=== PATIENT | male | born 1950 | race Caucasian/White ===

== ENCOUNTER 2016-09-03 09:07 | Observation (INO) | payer MEDICARE ==
[2016-09-03] VITALS (8 sets, daily range): BP systolic 108–172; BP diastolic 59–84; PULSE 60–73; RESP 15–20; O2SAT 93–99
[~2016-09-03] VITALS: Ht 193 cm; Wt 126.4 kg
[~2016-09-03 09:07] MED LIST: ASPI-973 PO; ATRV10T PO; METF500T4 PO; SERT100T PO
--- NOTE | 2016-09-03 09:25 | ED.REPORT ---
HPI-Chest Pain 40 and Over Date of Service Sep 03, 2016 ED Provider: Saman Morales MD Pt is a 66 y/o male w/ a hx of HTN, NIDDM, hyperlipidemia, anxiety, presenting to the ED c/o intermittent dull substernal chest pressure onset 2 days ago. These episodes seem to last 20-30 minutes at a time and are associated with diaphoresis, fatigue, anxiety, SOB, and numbness and tingling in the RUE. Pt denies nausea, fever, chills, abdominal pain, vomiting, diarrhea, urinary frequency, dysuria. This morning, he was sitting down reading and drinking coffee and his episode of CP was much more intense and felt different than prior episodes of chest pain so he decided to be evaluated. He states his anxiety has been progressively increasing for the past 2 weeks due to every-day life stressors associated with his PTSD. Family history is unknown. He had an episode of CP 20 years ago and reportedly had a normal cardiac workup at that time. He has no history of CAD. He is able to exercise without experiencing CP. His flight surgeon told him he may have been experiencing PACs many years ago by clinical history, there is no known history of LBBB. [facility] to see a [facility] again due to intermittent suicidal ideations. He denies history of suicide attempt. He reports close associated suicide, possession of firearm, alcohol use (1-2 per day). His plan to avoid suicide is to drive to his fishing spot or a coffee shop. PCP: Dr. Bonilla [facility] Suarez Nursing Notes Stated Complaint: CHEST PAIN Chief Complaint: Dysrhythmia/Cardiac Nursing Notes Reviewed: Yes Allergies: Coded Allergies: No Known Allergies (Verified Allergy, Unknown, 09/03/16) Scheduled Aspirin (Aspirin) 81 Mg Tablet 81 MG PO DAILY Atorvastatin (Lipitor) 10 Mg Tab 10 MG PO DAILY Metformin (Metformin) 500 Mg Tablet 500 MG PO DAILY Sertraline HCl (Zoloft) 100 Mg Tablet 100 MG PO DAILY General Time Seen by MD: 09:21 Chief Complaint Chest pressure Hx Obtained From: Patient Arrived By: Walk-in Sudden in Onset?: Yes Onset Occurred: 2 days ago Symptom Duration: Intermittent Location: : Substernal Quality: Pressure Radiation: : Does not radiate Migration/Movement: Reports: None Severity: Current: No pain currently Severity: Maximum: Moderate Similar Sx Previous: No Past Medical History Past Medical History Notes: PCP: Dr. [facility] Past Medical History NIDDM Hypertension Hyperlipidemia Anxiety PTSD Benign colonic polyps Past Surgical History Endoscopy Family History Unknown, never knew his parents Smoking History Former Smoker Social History Alcohol Use: 1-3 per day Ambulatory Status Independent Review of Systems Constitutional: Reports: Fatigue, Denies: Chills, Fever Respiratory: Reports: Shortness of breath, Denies: Non-productive cough Cardiovascular: Reports: Chest pain, Denies: Dyspnea on exertion, Edema GI: Reports: Nausea, Denies: Abdominal pain, Diarrhea, Vomiting Skin: Reports Diaphoresis, Denies Rash Neurologic: Reports: Numbness, Denies: Focal weakness Psychiatric: Reports: Anxiety, Stress, Denies: Agitation Complete sys rev & neg: except as marked. Male: Denies Dysuria, Denies Urinary frequency Physical Exam Initial Vital Signs Vital Signs (First) Date Time Temp Pulse Resp B/P Pulse Ox O2 Delivery O2 Flow Rate FiO2 09/03/16 09:20 36.9 73 15 172/84 96 Room Air Initial VS: Reviewed, Vital signs abnormal Head / Eyes: Atraumatic, Normocephalic, PERRL ENT: Mucous membranes moist, Conjunctiva normal, No scleral icterus Neck: Supple, Full range of motion Extremities: Vascular intact, Neuro intact, No swelling, No tenderness Skin: Warm, Dry, No cyanosis Neurologic: Alert, Oriented, Nonfocal General/Constitutional: Awake, Alert, No acute distress, Cooperative, Not toxic appearing Respiratory / Chest: Atraumatic, Breath sounds NL, Breath sounds = bilat, No respiratory distress, No rales, No rhonchi, No wheezing, No retractions, No stridor, No chest tenderness, No chest wall deformity, No crepitus Cardiovascular: Heart rate NL, Regular rhythm, Heart sounds NL, No gallop, No murmurs, No rubs, Cap refill not delayed, Peripheral circulation NL Abdomen: Atraumatic, Soft, Non-tender, No guarding, No rebound, No distention, No palpable mass Psychiatric: Affect NL, Mood NL, Not suicidal, Not homicidal, No hallucinations , Cognitive function NL, Judgment/insight NL, Thought content NL Interpretation & Diagnostics Lab Results Interpretation Result Diagram: 09/03/1630 4/6/17 0930 Test 09/03/16 09:30 White Blood Count 7.3th/mm3 (3.8-10.1) Red Blood Count 5.22mil/mm3 (4.40-5.80) Hemoglobin 15.3g/dL (13.8-17.2) Hematocrit 46.0% (41.0-50.0) Mean Corpuscular Volume 88.1fL (81-100) Mean Corpuscular Hemoglobin 29.3pg (27.0-35.0) Mean Corpuscular Hemoglobin Concent 33.3% (32.0-37.0) Red Cell Distribution Width 13.5% (12.3-15.4) Platelet Count 219bil/L (150-400) Neutrophils (%) (Auto) 71.8% (40-74) Lymphocytes (%) (Auto) 17.2% (14-46) Monocytes (%) (Auto) 10.0% (4-12) Eosinophils (%) (Auto) 0.3% (0-5) Basophils (%) (Auto) 0.4% (0-3) Sodium Level 138mEq/L (134-144) Potassium Level 4.0mEq/L (3.5-5.2) Chloride Level 102mEq/L (97-108) Carbon Dioxide Level 20mmol/L (18-29) Blood Urea Nitrogen 18mg/dL (8-27) Creatinine 1.15mg/dL (0.76-1.27) Estimat Glomerular Filtration Rate 67mL/min (>59) Glucose Level 135mg/dL (60-99) Calcium Level 9.5mg/dL (8.5-10.1) Magnesium Level 2.0mg/dL (1.6-2.6) Total Bilirubin 0.4mg/dL (0.0-1.2) Aspartate Amino Transf (AST/SGOT) 19U/L (0-50) Alanine Aminotransferase (ALT/SGPT) 15U/L (0-44) Alkaline Phosphatase 67U/L (25-160) Troponin T < 0.010ug/L (0.0-0.011) Pro-B-Type Natriuretic Peptide 75.99pg/mL (0-376) Total Protein 7.3g/dL (6.4-8.4) Albumin 4.0g/dL (3.4-5.0) ECG Interpretation ECG Interpretation: Sinus rhythm rate 68 LBBB No prior available for comparison Time: 09:25 Interpreted by: ED physician Normal ECG Interpretation: No acute ischemic changes X-Ray Chest Interpretation Chest Xray Interpretation: IMPRESSION: No trauma found, source of chest pain is not seen. Dictated by: Chaparro Llamas M.D. on 09/03/2016 at 10:31 Approved by: Chaparro Llamas M.D. on 09/03/2016 at 10:31 View: Portable, 1 view Interpretation / Wet Read by: Interpret - Radiologist Re-Eval/Medical Decision Med Decision/Clinical Course 66 year old male with multiple cardiac risk factors and increasing chest pain compatible with angina. He also has anxiety. ECG is LBBB, we do not have a baseline ECG. Given risk factors and abnormal ECG admission for expedited stress test indicated. Given ASA and lorazepam in ED. Pt has SI but no active intent, significant anxiety and he reports PTSD. Referral for mental health follow up is thought appropriate, discused with admitting service. Time of Eval: 10:45 Re-Evaluation/Progress Note: Pt rechecked. Informed pt of need for admission for cardiac workup. Pt understands and agrees with plan for admission. All questions addressed. Consultation : Referral / Consult Name: Aletha Wagoner DO Consulted With: Hospitalist Call Returned at: 10:54 Business Integration Manager: Will see patient, Agrees with eval, Agrees with plan, Accepts admit Counseled Regarding: Diagnosis, Lab results, Need for admission Discharge & Departure Primary Impression: Chest pain Chest pain type: unspecified Qualified Code: R07.9 - Chest pain, unspecified Additional Impression: Anxiety Disposition: ADMITTED TO HOSPITAL Discharge Condition All VS Reviewed: Yes Condition: Stable Referrals: Felipe Bonilla MD (PCP) Radha Attestation Portions of this note were transcribed by Lee Lujan. I, Dr. Morales personally performed the history, physical exam and medical decision-making; I reviewed and confirmed the accuracy of the information in the transcribed note. Signed by Radha Garcia, 09/03/16 - 1000 copies to: Felipe Bonilla MD, Donald L MD Sep 03, 2016 09:25 LEE LUJAN Sep 03, 2016 09:28
[2016-09-03 09:46] LABS: BASOPHILS % (AUTO) 0.4 % (0-3); EOSINOPHILS % (AUTO) 0.3 % (0-5); Mean Corpuscular Hemoglobin 29.3 pg (27.0-35.0); Mean Corpuscular Volume 88.1 fL (81-100); NEUTROPHILS % (AUTO) 71.8 % (40-74); Platelet Count 219 bil/L (150-400)
[2016-09-03] MEDS ORDERED: LORazepam 1 mg Tablet PO ONE (10:05)
[2016-09-03] MEDS ORDERED: Nitroglycerin 2% 1 Gm Ointment TOPICAL SCH (10:05)
[2016-09-03 10:27] LABS: TROPONIN T < 0.010 ug/L (0.0-0.011)
--- NOTE | 2016-09-03 10:32 | DRSVH ---
PROCEDURE: X-RAY CHEST ONE VIEW, PORTABLE ([id number]) INDICATIONS: CHEST PAIN TECHNIQUE: One view of the chest was acquired. COMPARISON: None. FINDINGS: Surgical changes and devices: None. Lungs and pleura: No pleural effusions or pneumothorax. Lungs are clear. Mediastinum: Mediastinal contours appear normal. Heart size is normal. Bones and chest wall: No suspicious bony lesions. Overlying soft tissues appear unremarkable. IMPRESSION: No trauma found, source of chest pain is not seen. Dictated by: Chaparro Llamas M.D. on 09/03/2016 at 10:31 Approved by: Chaparro Llamas M.D. on 09/03/2016 at 10:31
[2016-09-03] MEDS ORDERED: Ondansetron 2 mg/mL 2 mL Inj IVPUSH PRN ×2 (10:55→13:25)
[2016-09-03] MEDS ORDERED: Alum-Mag Hydrox-Simeth 30 mL Suspension PO PRN ×2 (10:55→13:25)
[2016-09-03] MEDS ORDERED: Lactated Ringer's 1,000 ML IV SCH (13:21)
[2016-09-03] MEDS ORDERED: Polyethylene Glycol (PEG) 17 Gm Powder PO PRN (13:25)
[2016-09-03] MEDS ORDERED: Glucose 40% Oral Gel 15 Gm Tube PO PRN (13:35)
[2016-09-03] MEDS: 0.9% Sodium Chloride 1,000 ML IV SCH (14:35)
[2016-09-03 15:43] LABS: APPEARANCE,URINE CLEAR (CLEAR,HAZY); COLOR,URINE YELLOW (YELLOW); OCCULT BLOOD,URINE TRACE (NEGATIVE); PH,URINE 7.5 (5.0-8.0); UROBILINOGEN,URINE NORMAL (NORMAL)
[2016-09-03 16:37] LABS: TROPONIN T < 0.010 ug/L (0.0-0.011)
[2016-09-03 16:40] LABS: Creatine Kinase 178 U/L (21-232)
[2016-09-03] MEDS: Insulin LISPRO 300 Unit/3 mL Inj SUBQ SCH ×2 (17:30→21:01)
[2016-09-03 22:09] LABS: Creatine Kinase 155 U/L (21-232)
[2016-09-03 22:11] LABS: TROPONIN T < 0.010 ug/L (0.0-0.011)
--- NOTE | 2016-09-03 23:08 | PCM.HPMED ---
Subjective Date of Service Sep 03, 2016 Primary Provider: Admitting Physician: Aletha Wagoner DO Primary Care Physician: Felipe Bonilla MD Attending Physician: Aletha Wagoner DO Admit Status: From the Emergency Department Chief Complaint: Chest pain, anxiety History of Present Illness: Mr. Jeremy Najera is a [age]-year-old male with past medical history of PTSD, anxiety, depression, diabetes type II, hypertension, hyperlipidemia. He states that he suffered for many many anxiety attacks. He states that he has been on Zoloft for many many years. Used to work but he does not feel it any longer working. He was given Ativan in the remote past and it worked but he no longer uses it. He received some Ativan in the ER which she feels has helped quite a bit. He belongs to the [employer] [facility] and this Dr. Bonilla also for PCP. He states that he was just sitting and reading something at 8:30 AM when he suddenly started feeling diaphoretic and dyspneic. He states that during these same moments he also felt suicidal though he did not have any plan. He states that this is not the first time he felt that way he felt that way for many years occasionally. He no longer feels the pain in the room. He denies use of recreational drugs. According to ER notes patient also is in the position of firearms. In the ER EKG showed left bundle branch block without any baseline to compare. Troponin is negative aspirin nitroglycerin given chest x-ray was negative. Ativan was given for anxiety. Patient is admitted to the [facility] team due to concern for us time finding of left bundle branch block to rule out ischemia versus infarction for a myocardial perfusion scan. Allergies Coded Allergies: No Known Allergies (Verified Allergy, Unknown, 09/03/16) H Past medical history is pertinent for DM 2, HTN, hyperlipidemia, anxiety, PTSD, benign polyps Surgical History Endoscopy Family History Adopted unknown family history Social History Hx Alcohol Use: Yes Alcoholic Drinks Per Day: 1-2 Hx Substance Use: No Smoking Status: Never Smoker Living Arrangement: with Family Exam Vital Signs Vital Sign - Last Date Time Temp Pulse Resp B/P Pulse Ox O2 Delivery O2 Flow Rate FiO2 09/03/16 12:06 36.9 72 157/68 95 Room Air 09/03/16 11:50 20 Exam Gen.: No acute distress laying in bed obese HEENT: Normocephalic atraumatic safety cannot hear on the right ear Heart: Regular rate and rhythm distant heart sounds Lungs: Negative for wheezing or crackles distant lung sounds Abdomen obese, nontender, normal bowel sounds Paz is negative for edema Neck negative for jugular venous distention, negative for carotid bruits Psych negative for anxiety Neuro no focal deficits Lab and Diagnostics Result Diagram: 09/03/1692909/03/16929 12-lead ECG Left bundle branch block Assessment & Plan Acute assessment #1 Assessment #1 chest pain: Resolved upon arriving to the floor -- Telemonitoring --Morphine 1 mg every 4 when necessary as needed -- Aspirin daily -- Nitroglycerin when necessary -- Stress test tomorrow a.m. -- Hold beta blockers and casein for stress -- Cardiac echo -- Oxygen as needed -- Continue home atorvastatin Assessment #2 anxiety attack -- Clonazepam 0.5 mg by mouth twice a day when necessary Assessment #3 depression and anxiety -- Consider switching him to Effexor Assessment #4 suicidal ideation prior to arrival -- Consult psych Assessment #5 hyperlipidemia -- Continue home statin -- A.m. lipid panel #6 diabetes -- Hold metformin -- A.m. A1c -- Low scale SSI DVT prophylaxis with enoxaparin 40 mg subcutaneous IV fluids hep-locked Diet cardiac Aletha Wagoner DO Sep 03, 2016 13:37
[2016-09-04] VITALS (10 sets, daily range): BP systolic 114–173; BP diastolic 64–89; PULSE 49–75; RESP 16–18; O2SAT 94–97
--- NOTE | 2016-09-04 01:40 | NUR ---
Bradycardia/NPO Pt's HR while sleeping went from 50, 40, to 39 bpm per train electronic technician. Pt awaken and assessed-asymptomatic. Pt hr increased to 49 while awake and other vitals stable. Denies dizziness, headache and discomfort. Dr. Tinajero notified and will continue to monitor. Pt told about decrease in HR and pt stated, "What's wrong with that?" Pt got up and went to the bathroom without issues noted. NPO after midnight. care ongoing.
--- NOTE | 2016-09-04 01:56 | NUR ---
Bradycardia Per monitor technician-Pt's hr 39bpm while asleep. Pt awaken and hr 55. Other vitals stable. Denies discomfort, chest pain, and shortness of breath. Asymptomatic. Cooked paged Dr. Tinajero awaiting response. care on going.
[2016-09-04] MEDS: 0.9% Sodium Chloride 1,000 ML IV SCH ×2 (03:03→14:20)
[2016-09-04 06:07] LABS: BASOPHILS % (AUTO) 0.3 % (0-3); MONOCYTES % (AUTO) 10.9 % (4-12); Mean Corpuscular Hemoglobin 29.7 pg (27.0-35.0); Mean Corpuscular Volume 90.1 fL (81-100); NEUTROPHILS % (AUTO) 55.8 % (40-74); Platelet Count 195 bil/L (150-400)
[2016-09-04] MEDS: Insulin LISPRO 300 Unit/3 mL Inj SUBQ SCH ×4 (07:12→22:00)
--- NOTE | 2016-09-04 13:00 | NUR ---
Case Management: JANIA given and explained to pt. Jovanna CALLE RN
--- NOTE | 2016-09-04 14:01 | DRSVH ---
PROCEDURE: 1 DAY PHARMACOLOGICAL STRESS TEST Rest and pharmacological stress myocardial perfusion SPECT with gated imaging and ejection fraction RADIOPHARMACEUTICAL: 10.5 mCi Tc-99m tetrafosmin IV at rest and 32.7 mCi Tc-99m tetrafosmin IV at pea k effect of pharmacological stress. A [id number] was performed. INDICATIONS: 66 year-old male with chest pain. Patient has hypertension, diabetes and hyperlipidemia . Evaluate myocardial ischemia. TECHNIQUE: Radiopharmaceutical was injected at peak stress test, and also at rest. SPECT images wer e obtained. SPECT myocardial perfusion images were displayed in short axis, horizontal long axis, an d vertical long axis views. Gated images were reviewed using [employer] software. COMPARISON: None. CARDIAC STRESS: A pharmacologic stress test was performed under the supervision of an attending staff, using an infus ion of Lexiscan. Hemodynamic data: There is normal blood pressure and heart rate response to pharmacologic stress. Symptoms: The patient reported chest pressure at baseline, which may have been slightly increased du ring Lexiscan fusion. Aminophylline: 100 mg IV EKG: LBBB at baseline. Non-diagnostic for ischemia; no ectopy. FINDINGS: Raw data: There is good myocardial uptake of radiotracer. No significant motion artifacts.. Left ventricle function: Gated images demonstrate normal left ventricular wall thickening. No segme ntal wall motion abnormalities. No transient ischemic dilation. Left ventricle resting end diastoli c volume is normal. Left ventricle stress ejection fraction is greater than 70%; normal range is abo ve 45%. Myocardial perfusion: There is a moderate-sized, moderately severe, reversible perfusion defect in t he distal inferior wall and inferior apex, which is significantly improved on prone imaging, suggesti ng at least a component of diaphragmatic attenuation artifact. A small, mild defect persists, which c ould represent a small area of very mild ischemia.. IMPRESSION: 1. Probably abnormal myocardial perfusion images with a small, mild, reversible perfusion defect sugg esting myocardial ischemia. There is a component of attenuation artifact in anterior wall. 2. Normal left ventricular volume and systolic function. 3. Mild chest pressure. LBBB. No-diagnostic EKG for ischemia. PQRS ATTESTATIONS: Measure 322 - Is this imaging test primarily performed on a low-risk surgery patient for preoperative evaluation within 30 days preceding their low-risk non-cardiac surgery? Low-risk surgery is defined as cardiac or myocardial infarction less than 1%, including (but not limited to) endoscopic pr ocedures, superficial procedures, cataract surgery, and excisional breast surgery: Answer: No Measure 323 - Is this imaging test performed primarily for the monitoring of an asymptomatic patient who had percutaneous coronary intervention on the visit date or within 2 years of the visit date? An swer: No Measure 324 - Is this imaging test performed primarily for the initial detection and risk assessment on an asymptomatic, low coronary heart disease patient? Low CHD risk definition = clinicians should consider the maximum number of available patient factors used to estimate risk based on Mccaskill (A TP III criteria), typically age, gender, diabetes, smoking status, and use of blood pressure medicati on, and integrate age appropriate estimates for missing elements, such as LDL or standard blood press ure. Answer: No Dictated by: Antonio Guerrero M.D. on 09/04/2016 at 13:43 Approved by: Antonio Guerrero M.D. on 09/04/2016 at 14:00
--- NOTE | 2016-09-04 14:25 | NUR ---
Social Work: Initial Assessment / Readiness for d/c Data: Pt is a 66 y/o male admitted for chest pain. Pt's PCP is Dr Bonilla, pt's insurance is [employer]. EMR reviewed. Readmit score not listed. PHOTOENGRAVER APPRENTICE met with pt at bedside, role explained. Pt states that he lives in [place] with his in a single story home where he uses no DME. Pt states that he drives, has no hx of HH or SNF, pt has LTC and [facility] benefits. UR specialist notified of VA status. Pt states he has an AD/DPOA, declined to give this to hospital at this time. See Mental Health Assessment. No further d/c planning needs identified at this time. PHOTOENGRAVER APPRENTICE will continue to follow if needs arise. Assessment: Pt who is independent at baseline. Plan: Pt will d/c home via POV with spouse when medically stable. No further d/c planning needs identified at this time. PHOTOENGRAVER APPRENTICE will continue to follow if needs arise. MANDA Romeo Addendum: 09/04/16 at 1502 by APSTOR LOMBARDO Amended: Links added.
--- NOTE | 2016-09-04 16:26 | NUR ---
Social Work: Mental Health Assessment Jeremy Najera 09/04/16 2:30pm Current Situation: Pt was admitted to the hospital on 09/03/16 for chest pain. Pt reported hx of PTSD and anxiety. Pt also reported that he often has passing thoughts of suicide. OIL DEVELOPER asked to see pt by to assess. Pt and his spouse live in [place]. His chest pain is a change in his medical baseline. Pt reports no hx of chemical dependency or abuse. Current Mental Status: Pt is a 66 y/o white male who was laying in bed when OIL DEVELOPER came into the room. Pt moved to the chair to discuss further with OIL DEVELOPER. Pt requested that his stay in the room for the assessment. Pt appears in a hospital gown over his regular clothing of a t-shirt and jeans. Pt described his mood as "Feeling pretty good. Just got some anti-anxiety medication. I am looking forward to going home." Pt describes his energy as being very good for the past couple of weeks but prior to that was very low. Pt denies an visual, auditory, olfactory, tactile hallucinations. Pt denies any homicidal thoughts, ideas, or plans. Pt endorses that he frequently has "passing suicidal thoughts" but that he does not have a plan or intent to go through with this. He states that he likes to go fishing or go to his "man cave". He states "I have lots of ways out of feeling that way, I do not plan to kill myself." History: Pt reports that he has a "great [facility] [place]" and states that he has an appointment with her next week. Pt's spouse confirmed this. Pt has no hx of psychiatric treatment. Pt states he takes medications managed by his PCP for his mental health. Natural Supports: Pt reports that his is his biggest support. Pt also states that he goes to two different [facility] support groups. He also has his daughter who he states is a "medical professional". He also states that his [facility] counselor is a great support to him and has helped him a lot. Legal History: Pt reports that he has some land ownership disputes currently regarding his mother's property. No time in shelter. Pt does own guns for hunting purposes. Pt reports that he is not a victim of abuse currently or historically. Diagnosis: Per pt: PTSD, Anxiety. Disposition: After clinical evaluation, OIL DEVELOPER has determined that pt is not currently a danger to himself or others. MD and OIL DEVELOPER discussed, MD states they do not believe pt to be a danger to themselves or others. Pt states he will go to his appointment next week with his [facility] counselor and continue to take his medications as prescribed. Pt and spouse understand that they have 9-1-1, coming to the ER, and the [facility] crisis line if pt becomes suicidal. Pt accepted Mental Health Provider list from OIL DEVELOPER for future use. No further OIL DEVELOPER needs at this time. OIL DEVELOPER will continue to follow if needs arise. MANDA Romeo
[2016-09-04] MEDS: LORazepam 0.5 mg Tablet PO PRN (18:20)
--- NOTE | 2016-09-04 21:41 | PCM.PNMED ---
Subjective Date of Service Sep 04, 2016 Subjective Patient is seen and examined. He appears more irate today as he states he really needs Ativan to calm down, the only thing that will work for him. Clonazepam is not working. He did not receive his stress test results to later in the day is willing to stay overnight Exam Vital Signs Vital Sign - Last Date Time Temp Pulse Resp B/P Pulse Ox O2 Delivery O2 Flow Rate FiO2 09/04/16 20:31 36.9 63 18 145/86 95 Room Air Intake and Output 09/03/16 09/03/16 09/04/16 Cumulative From/Thru 14:59 22:59 06:59 09/03/16 09:20 - 09/04/16 06:01 Intake Total 705 ml 959 ml 1664 ml Output Total 475 ml 475 ml Balance 230 ml 959 ml 1189 ml Intake Oral 460 ml 460 ml IV Total 245 ml 959 ml 1204 ml Output Urine Total 475 ml 475 ml Exam Gen.: No acute distress heart appearing HEENT: Normocephalic, atraumatic Heart: Regular rate and rhythm no S3-S4 sounds Lungs: Clear to auscultation no crackles or wheezes Psych: Appears irate Neuro: No focal deficits IVs and Medications IV Fluids None Medications Reviewed: Medications were reviewed in detail Lab and Diagnostics Result Diagram: 09/04/1652909/04/16 05 12-lead ECG Left bundle branch block Additional Diagnostics [facility] Diagnostic [place] [address] Patient Name: ARASH RAMOS MR#: [id number] Location: [facility] [place] Ordering Phys: Aletha Wagoner DO Date of Service: 09/04/16 0600 PROCEDURE: 1 DAY PHARMACOLOGICAL STRESS TEST Rest and pharmacological stress myocardial perfusion SPECT with gated imaging and ejection fraction RADIOPHARMACEUTICAL: 10.5 mCi Tc-99m tetrafosmin IV at rest and 32.7 mCi Tc-99m tetrafosmin IV at peak effect of pharmacological stress. A tqy-vos-gxrztsgf was performed. INDICATIONS: 66 year-old male with chest pain. Patient has hypertension, diabetes and hyperlipidemia. Evaluate myocardial ischemia. TECHNIQUE: Radiopharmaceutical was injected at peak stress test, and also at rest. SPECT images were obtained. SPECT myocardial perfusion images were displayed in short axis, horizontal long axis, and vertical long axis views. Gated images were reviewed using [employer] software. COMPARISON: None. CARDIAC STRESS: A pharmacologic stress test was performed under the supervision of an attending staff, using an infusion of Lexiscan. Hemodynamic data: There is normal blood pressure and heart rate response to pharmacologic stress. Symptoms: The patient reported chest pressure at baseline, which may have been slightly increased during Lexiscan fusion. Aminophylline: 100 mg IV EKG: LBBB at baseline. Non-diagnostic for ischemia; no ectopy. FINDINGS: Raw data: There is good myocardial uptake of radiotracer. No significant motion artifacts.. Left ventricle function: Gated images demonstrate normal left ventricular wall thickening. No segmental wall motion abnormalities. No transient ischemic dilation. Left ventricle resting end diastolic volume is normal. Left ventricle stress ejection fraction is greater than 70%; normal range is above 45 %. Myocardial perfusion: There is a moderate-sized, moderately severe, reversible perfusion defect in the distal inferior wall and inferior apex, which is significantly improved on prone imaging, suggesting at least a component of diaphragmatic attenuation artifact. A small, mild defect persists, which could represent a small area of very mild ischemia.. IMPRESSION: 1. Probably abnormal myocardial perfusion images with a small, mild, reversible perfusion defect suggesting myocardial ischemia. There is a component of attenuation artifact in anterior wall. 2. Normal left ventricular volume and systolic function. 3. Mild chest pressure. LBBB. No-diagnostic EKG for ischemia. PQRS ATTESTATIONS: Measure 322 - Is this imaging test primarily performed on a low-risk surgery patient for preoperative evaluation within 30 days preceding their low-risk non- cardiac surgery? Low-risk surgery is defined as cardiac or myocardial infarction less than 1%, including (but not limited to) endoscopic procedures, superficial procedures, cataract surgery, and excisional breast surgery: Answer : No Measure 323 - Is this imaging test performed primarily for the monitoring of an asymptomatic patient who had percutaneous coronary intervention on the visit date or within 2 years of the visit date? Answer: No Measure 324 - Is this imaging test performed primarily for the initial detection and risk assessment on an asymptomatic, low coronary heart disease patient? Low CHD risk definition = clinicians should consider the maximum number of available patient factors used to estimate risk based on [place] ( ATP III criteria), typically age, gender, diabetes, smoking status, and use of blood pressure medication, and integrate age appropriate estimates for missing elements, such as LDL or standard blood pressure. Answer: No Dictated by: Antonio Guerrero M.D. on 09/04/2016 at 13:43 Approved by: Antonio Guerrero M.D. on 09/04/2016 at 14:00 Assessment & Plan Acute assessment #1 Assessment #1 chest pain: Resolved upon arriving to the floor -- Telemonitoring --Morphine 1 mg every 4 when necessary as needed -- Aspirin daily -- Nitroglycerin when necessary -- Stress test tomorrow a.m. -- Hold beta blockers and caffienefor stress -- Cardiac echo -- Oxygen as needed -- Continue home atorvastatin -- Stress test result: Probably abnormal myocardial perfusion images with a small, mild, reversible perfusion defect suggesting myocardial ischemia. There is a component of attenuation artifact in anterior wall. This is discussed with Dr. Mccarthy since he can be followed up as an outpatient by cardiology. Assessment #2 anxiety attack -- Clonazepam 0.5 mg by mouth twice a day when necessary: He switched to Ativan 0.5 twice a day when necessary. We also discussed the need to adjust his home medication since that he does not develop a dependence on Ativan but rather only use it for acute panic attacks Assessment #3 depression and anxiety -- Consider switching him to Effexor: Upon discussion with patient, it is felt that he really believes that medication does work and we will leave it up to his PCP to discuss switching him on a taper protocol to another medication -- We will augment with trazodone Assessment #4 suicidal ideation prior to arrival -- Consult psych Assessment #5 hyperlipidemia -- Continue home statin -- A.m. lipid panel #6 diabetes -- Restart metformin -- A.m. A1c: 6.3 well controlled -- Low scale SSI DVT prophylaxis with enoxaparin 40 mg subcutaneous IV fluids hep-locked Diet cardiac VTE Prophylaxis: Sub-Q Enoxaparin Resuscitation Status: CPR: Attempt Resuscitation Aletha Wagoner DO Sep 04, 2016 21:41
[2016-09-05 00:42] VITALS: BP 134/83; PULSE 60; RESP 16; O2SAT 97
[2016-09-05 04:38] VITALS: BP 155/94; PULSE 60; RESP 16; O2SAT 99
[2016-09-05 05:28] VITALS: PULSE 50
[2016-09-05] MEDS: LORazepam 0.5 mg Tablet PO PRN (07:51)
[2016-09-05] MEDS: Insulin LISPRO 300 Unit/3 mL Inj SUBQ SCH (07:51)
--- NOTE | 2016-09-05 08:12 | PCM.DIMED ---
Discharge Instructions Date of Service Sep 05, 2016 Dates of Hospitalization Sep 03, 2016 at 11:41 Discharge Diagnosis Discharge Diagnosis Chest Pain due to CAD, DM2, HTN, Hyperlipidemia, panic attack Test Results [facility] Diagnostic Imaging [place] [address] Patient Name: ARASH RAMOS MR#: [id number] [place] [facility] [place] Phys: Aletha Wagoner DO Date of Service: 09/04/16 0600 PROCEDURE: 1 DAY PHARMACOLOGICAL STRESS TEST Rest and pharmacological stress myocardial perfusion SPECT with gated imaging and ejection fraction RADIOPHARMACEUTICAL: 10.5 mCi Tc-99m tetrafosmin IV at rest and 32.7 mCi Tc-99m tetrafosmin IV at peak effect of pharmacological stress. A tuo-zls-xrtalfne was performed. INDICATIONS: 66 year-old male with chest pain. Patient has hypertension, diabetes and hyperlipidemia. Evaluate myocardial ischemia. TECHNIQUE: Radiopharmaceutical was injected at peak stress test, and also at rest. SPECT images were obtained. SPECT myocardial perfusion images were displayed in short axis, horizontal long axis, and vertical long axis views. Gated images were reviewed using [employer] software. COMPARISON: None. CARDIAC STRESS: A pharmacologic stress test was performed under the supervision of an attending staff, using an infusion of Lexiscan. Hemodynamic data: There is normal blood pressure and heart rate response to pharmacologic stress. Symptoms: The patient reported chest pressure at baseline, which may have been slightly increased during Lexiscan fusion. Aminophylline: 100 mg IV EKG: LBBB at baseline. Non-diagnostic for ischemia; no ectopy. FINDINGS: Raw data: There is good myocardial uptake of radiotracer. No significant motion artifacts.. Left ventricle function: Gated images demonstrate normal left ventricular wall thickening. No segmental wall motion abnormalities. No transient ischemic dilation. Left ventricle resting end diastolic volume is normal. Left ventricle stress ejection fraction is greater than 70%; normal range is above 45 %. Myocardial perfusion: There is a moderate-sized, moderately severe, reversible perfusion defect in the distal inferior wall and inferior apex, which is significantly improved on prone imaging, suggesting at least a component of diaphragmatic attenuation artifact. A small, mild defect persists, which could represent a small area of very mild ischemia.. IMPRESSION: 1. Probably abnormal myocardial perfusion images with a small, mild, reversible perfusion defect suggesting myocardial ischemia. There is a component of attenuation artifact in anterior wall. 2. Normal left ventricular volume and systolic function. 3. Mild chest pressure. LBBB. No-diagnostic EKG for ischemia. PQRS ATTESTATIONS: Measure 322 - Is this imaging test primarily performed on a low-risk surgery patient for preoperative evaluation within 30 days preceding their low-risk non- cardiac surgery? Low-risk surgery is defined as cardiac or myocardial infarction less than 1%, including (but not limited to) endoscopic procedures, superficial procedures, cataract surgery, and excisional breast surgery: Answer : No Measure 323 - Is this imaging test performed primarily for the monitoring of an asymptomatic patient who had percutaneous coronary intervention on the visit date or within 2 years of the visit date? Answer: No Measure 324 - Is this imaging test performed primarily for the initial detection and risk assessment on an asymptomatic, low coronary heart disease patient? Low CHD risk definition = clinicians should consider the maximum number of available patient factors used to estimate risk based on [place] ( ATP III criteria), typically age, gender, diabetes, smoking status, and use of blood pressure medication, and integrate age appropriate estimates for missing elements, such as LDL or standard blood pressure. Answer: No Dictated by: Antonio Guerrero M.D. on 09/04/2016 at 13:43 Approved by: Antonio Guerrero M.D. on 09/04/2016 at 14:00 Diet Low fat, Low Sodium, Heart Healthy, Diabetic Activity No restrictions Call your provider Fever or Chills, Shortness of breath, Bleeding, Chest pain, Vomitting, Excessive diarrhea, Weakness (unilateral), Other Patient Instructions Follow-up plan F/U with cardiology in 1-2 weeks F/U with PCP in one week. Aletha Wagoner DO Sep 05, 2016 08:12
[2016-09-05] MEDS ORDERED: METO25TA6 PO (08:14)
[2016-09-05] MEDS ORDERED: LISI-571 PO (08:15)
[2016-09-05] MEDS ORDERED: TRAZ-115 PO (08:17)
[2016-09-05] MEDS ORDERED: LORA-302 PO (08:17)
[2016-09-05 09:44] VITALS: BP 152/87; PULSE 68; RESP 16; O2SAT 96
[2016-09-05 10:07] VITALS: PULSE 66
--- NOTE | 2016-09-05 10:21 | NUR ---
discharge Went over discharge instructions and medications with patient and his who both verbally acknowledged understanding. Removed intact patent IV and tele. Pt refused wheelchair and left on foot. No s/s of distress at time of discharge
--- NOTE | 2016-09-05 10:54 | NUR ---
Social Work: Discharge Data: EMR reviewed. Pt is on day 2 of hospitalization for chest pain. See Mental Health Assessment. SW met with pt at bedside and followed up re: suicidal ideation and mental health resources. Pt confirmed that he is not currently having suicical thoughts and has resources that he can utilize should these thoughts reoccur. Pt will discharge home via . No further d/c planning needs identified at this time. Assessment: Pt who is independent at baseline. Plan: Pt will d/c home via POV with spouse. MANDA Tierney
--- NOTE | 2016-09-05 22:57 | PCM.DC.MED ---
Discharge Summary Date of Service Sep 05, 2016 Dates of Hospitalization Date of Hospital Admission Sep 03, 2016 at 11:41 Date of Discharge: Sep 05, 2016 Providers: Admitting Physician: Aletha Allan DO Primary Care Physician: Felipe Bonilla MD Attending Physician: Aletha Allan DO Diagnosis at Time of Discharge Diagnosis at Time of Discharge Chest Pain due to CAD, DM2, HTN, Hyperlipidemia, panic attack Consultations None Procedures ECG 12 Lead Left bundle branch block Other Diagnostics [facility] [place] [address] Patient Name: ARASH RAMOS MR#: [id number] Location: [facility] [place] Ordering Phys: Aletha Allan DO Date of Service: 09/04/16 0600 PROCEDURE: 1 DAY PHARMACOLOGICAL STRESS TEST Rest and pharmacological stress myocardial perfusion SPECT with gated imaging and ejection fraction RADIOPHARMACEUTICAL: 10.5 mCi Tc-99m tetrafosmin IV at rest and 32.7 mCi Tc-99m tetrafosmin IV at peak effect of pharmacological stress. A ctt-swe-lagcvggx was performed. INDICATIONS: 66 year-old male with chest pain. Patient has hypertension, diabetes and hyperlipidemia. Evaluate myocardial ischemia. TECHNIQUE: Radiopharmaceutical was injected at peak stress test, and also at rest. SPECT images were obtained. SPECT myocardial perfusion images were displayed in short axis, horizontal long axis, and vertical long axis views. Gated images were reviewed using [employer] software. COMPARISON: None. CARDIAC STRESS: A pharmacologic stress test was performed under the supervision of an attending staff, using an infusion of Lexiscan. Hemodynamic data: There is normal blood pressure and heart rate response to pharmacologic stress. Symptoms: The patient reported chest pressure at baseline, which may have been slightly increased during Lexiscan fusion. Aminophylline: 100 mg IV EKG: LBBB at baseline. Non-diagnostic for ischemia; no ectopy. FINDINGS: Raw data: There is good myocardial uptake of radiotracer. No significant motion artifacts.. Left ventricle function: Gated images demonstrate normal left ventricular wall thickening. No segmental wall motion abnormalities. No transient ischemic dilation. Left ventricle resting end diastolic volume is normal. Left ventricle stress ejection fraction is greater than 70%; normal range is above 45 %. Myocardial perfusion: There is a moderate-sized, moderately severe, reversible perfusion defect in the distal inferior wall and inferior apex, which is significantly improved on prone imaging, suggesting at least a component of diaphragmatic attenuation artifact. A small, mild defect persists, which could represent a small area of very mild ischemia.. IMPRESSION: 1. Probably abnormal myocardial perfusion images with a small, mild, reversible perfusion defect suggesting myocardial ischemia. There is a component of attenuation artifact in anterior wall. 2. Normal left ventricular volume and systolic function. 3. Mild chest pressure. LBBB. No-diagnostic EKG for ischemia. PQRS ATTESTATIONS: Measure 322 - Is this imaging test primarily performed on a low-risk surgery patient for preoperative evaluation within 30 days preceding their low-risk non- cardiac surgery? Low-risk surgery is defined as cardiac or myocardial infarction less than 1%, including (but not limited to) endoscopic procedures, superficial procedures, cataract surgery, and excisional breast surgery: Answer : No Measure 323 - Is this imaging test performed primarily for the monitoring of an asymptomatic patient who had percutaneous coronary intervention on the visit date or within 2 years of the visit date? Answer: No Measure 324 - Is this imaging test performed primarily for the initial detection and risk assessment on an asymptomatic, low coronary heart disease patient? Low CHD risk definition = clinicians should consider the maximum number of available patient factors used to estimate risk based on [place] ( ATP III criteria), typically age, gender, diabetes, smoking status, and use of blood pressure medication, and integrate age appropriate estimates for missing elements, such as LDL or standard blood pressure. Answer: No Dictated by: Antonio Guerrero M.D. on 09/04/2016 at 13:43 Approved by: Antonio Guerrero M.D. on 09/04/2016 at 14:00 Brief History Mr. Arash Ramos is a [age]-year-old male with past medical history of PTSD, anxiety, depression, diabetes type II, hypertension, hyperlipidemia. He states that he suffered for many many anxiety attacks. He states that he has been on Zoloft for many many years. Used to work but he does not feel it any longer working. He was given Ativan in the remote past and it worked but he no longer uses it. He received some Ativan in the ER which she feels has helped quite a bit. [facility] and this Dr. Bonilla also for PCP. He states that he was just sitting and reading something at 8:30 AM when he suddenly started feeling diaphoretic and dyspneic. He states that during these same moments he also felt suicidal though he did not have any plan. He states that this is not the first time he felt that way he felt that way for many years occasionally. He no longer feels the pain in the room. He denies use of recreational drugs. According to ER notes patient also is in the position of firearms. In the ER EKG showed left bundle branch block without any baseline to compare. Troponin is negative aspirin nitroglycerin given chest x-ray was negative. Ativan was given for anxiety. Patient is admitted to the [facility] team due to concern for us time finding of left bundle branch block to rule out ischemia versus infarction for a myocardial perfusion scan. Hospital Course Acute assessment #1 Assessment #1 chest pain: Resolved upon arriving to the floor -- Telemonitoring --Morphine 1 mg every 4 when necessary as needed -- Aspirin daily -- Nitroglycerin when necessary -- Stress test tomorrow a.m. -- Hold beta blockers and caffienefor stress -- Cardiac echo -- Oxygen as needed -- Continue home atorvastatin -- Stress test result: Probably abnormal myocardial perfusion images with a small, mild, reversible perfusion defect suggesting myocardial ischemia. There is a component of attenuation artifact in anterior wall. This is discussed with Dr. Mccarthy since he can be followed up as an outpatient by cardiology. Follow-up in 1-2 weeks with cardiology to set up upon discharge -- Patient is given lisinopril and metoprolol scripts for discharge Assessment #2 anxiety attack -- Clonazepam 0.5 mg by mouth twice a day when necessary: He switched to Ativan 0.5 twice a day when necessary. We also discussed the need to adjust his home medication since that he does not develop a dependence on Ativan but rather only use it for acute panic attacks -- He is given both trazodone and Ativan scripts for discharge. Assessment #3 depression and anxiety -- Consider switching him to Effexor: Upon discussion with patient, it is felt that he really believes that medication does work and we will leave it up to his PCP to discuss switching him on a taper protocol to another medication -- We will augment with trazodone Assessment #4 suicidal ideation prior to arrival -- We have regularly checked and patient's status. Social work discuss this with patient. Patient denied no such intentions during this visit Assessment #5 hyperlipidemia -- Continue home statin -- A.m. lipid panel #6 diabetes -- Restart metformin -- A.m. A1c: 6.3 well controlled -- Low scale SSI DVT prophylaxis with enoxaparin 40 mg subcutaneous IV fluids hep-locked Diet cardiac Exam Vital Signs (Last) Date Time Temp Pulse Resp B/P Pulse Ox O2 Delivery O2 Flow Rate FiO2 09/05/16 05:28 50 09/05/16 04:38 36.7 16 155/94 99 Room Air Exam Gen.: No acute distress hard of hearing HEENT: Normocephalic, atraumatic Heart: Regular rate and rhythm no S3-S4 murmurs Lungs: Clear to auscultation no crackles or wheezing Abdomen: Obese, nondistended, normal bowel sounds Extremities negative for edema Psych: Negative for anxiety Neuro: No focal deficits Test 09/03/16 09:30 09/03/16 15:00 09/03/16 21:30 09/04/16 05:30 Hemoglobin A1c 6.3% (4.8-5.6) Magnesium Level 2.0mg/dL (1.6-2.6) Pro-B-Type Natriuretic Peptide 75.99pg/mL (0-376) Urine Color Yellow (YELLOW) Urine Appearance Clear (CLEAR,HAZY) Urine pH 7.5 (5.0-8.0) Urine Specific [place] 1.010 (1.003-1.035) Urine Protein Negativemg/dL (NEG,TRACE) Urine Glucose (UA) Negativemg/dL (NEGATIVE) Urine Ketones Negativemg/dL (NEGATIVE) Urine Occult Blood Trace (NEGATIVE) Urine Nitrite Negative (NEGATIVE) Urine Bilirubin Negative (NEGATIVE) Urine Urobilinogen Normalmg/dL (NORMAL) Urine Leukocyte Esterase Negative (NEGATIVE) Urine RBC 0-2/hpf (0-2) Urine WBC 0-5/hpf (0-5) Urine Epithelial Cells Occasional/hpf (NONE-MOD) Urine Crystals None seen (NONE SEEN) Urine Bacteria None/hpf (NONE-FEW) Urine Hyaline Casts None/lpf (NONE) Urine Granular Casts None seen (NONE SEEN) Urine Waxy Casts None seen (NONE SEEN) Urine Red Blood Cell Casts None seen (NONE SEEN) Urine White Blood Cell Casts None seen (NONE SEEN) Urine Mucus None seen (None Seen) Urine Trichomonas None seen (NONE SEEN) Urine Yeast None (NONE SEEN) Urine Culture Reflexed Not indicated Total Creatine Kinase 155U/L (21-232) Creatine Kinase MB 1.8ng/mL (0.0-10.4) Creatine Kinase MB % % (0.0-5.0) Troponin T < 0.010ug/L (0.0-0.011) White Blood Count 6.8th/mm3 (3.8-10.1) Red Blood Count 4.74mil/mm3 (4.40-5.80) Hemoglobin 14.1g/dL (13.8-17.2) Hematocrit 42.7% (41.0-50.0) Mean Corpuscular Volume 90.1fL (81-100) Mean Corpuscular Hemoglobin 29.7pg (27.0-35.0) Mean Corpuscular Hemoglobin Concent 33.0% (32.0-37.0) Red Cell Distribution Width 13.6% (12.3-15.4) Platelet Count 195bil/L (150-400) Neutrophils (%) (Auto) 55.8% (40-74) Lymphocytes (%) (Auto) 31.9% (14-46) Monocytes (%) (Auto) 10.9% (4-12) Eosinophils (%) (Auto) 1.0% (0-5) Basophils (%) (Auto) 0.3% (0-3) Sodium Level 143mEq/L (134-144) Potassium Level 4.4mEq/L (3.5-5.2) Chloride Level 108mEq/L (97-108) Carbon Dioxide Level 21mmol/L (18-29) Blood Urea Nitrogen 17mg/dL (8-27) Creatinine 1.07mg/dL (0.76-1.27) Estimat Glomerular Filtration Rate 73mL/min (>59) Glucose Level 111mg/dL (60-99) Calcium Level 8.8mg/dL (8.5-10.1) Total Bilirubin 0.4mg/dL (0.0-1.2) Aspartate Amino Transf (AST/SGOT) 15U/L (0-50) Alanine Aminotransferase (ALT/SGPT) 12U/L (0-44) Alkaline Phosphatase 57U/L (25-160) Total Protein 5.7g/dL (6.4-8.4) Albumin 3.7g/dL (3.4-5.0) Triglycerides Level 102mg/dL (0-149) Cholesterol Level 165mg/dL (100-199) LDL Cholesterol, Calculated 95.600mg/dL (0-99) VLDL Cholesterol 20.400mg/dL HDL Cholesterol 49mg/dL (>39) Cholesterol/HDL Ratio 3.37 (0.0-4.4) Discharge Medications Discharge Medications Aspirin (Aspirin) 81 Mg Tablet 81 MG PO DAILY (Reported) Atorvastatin (Lipitor) 10 Mg Tab 10 MG PO DAILY (Reported) Lisinopril (Lisinopril) 5 Mg Tablet 5 MG PO DAILY Prescribed by: ALETHA ALLAN DO Metformin (Metformin) 500 Mg Tablet 500 MG PO DAILY (Reported) Metoprolol Tartrate (Metoprolol Tartrate) 25 Mg Tablet 12.5 MG PO BID Prescribed by: ALETHA ALLAN DO Sertraline HCl (Zoloft) 100 Mg Tablet 100 MG PO DAILY (Reported) Trazodone (Trazodone) 50 Mg Tablet 50 MG PO HS Prescribed by: ALETHA ALLAN DO As needed Lorazepam (Ativan) 0.5 Mg Tablet 0.5 MG PO BID PRN PRN For Insomnia Prescribed by: ALETHA ALLAN DO Followup Plan Follow-up plan F/U with cardiology in 1-2 weeks F/U with PCP in one week. Discharge Diet: Low fat, Low Sodium, Heart Healthy, Diabetic Discharge Activity: No restrictions Aletha Allan DO Sep 05, 2016 08:18
== END 2016-09-05 10:25 | disposition home or self-care (01) ==
LOC: SED 09:07 → MPC 11:41
PROVIDERS: ADMIT Family Medicine; ATTEND Family Medicine
DX: R07.9 Chest pain, unspecified (principal); I25.10 Atherosclerotic heart disease of native coronary artery without angina pectoris; I10 Essential (primary) hypertension; E11.9 Type 2 diabetes mellitus without complications; Z79.84 Long term (current) use of oral hypoglycemic drugs; E78.5 Hyperlipidemia, unspecified; F41.0 Panic disorder [episodic paroxysmal anxiety]; F43.10 Post-traumatic stress disorder, unspecified; F32.9 Major depressive disorder, single episode, unspecified
CPT/HCPCS: 36415; 71010; 78452; 80053; 80061; 81000; 82550; 82553; 82948; 83036; 83735; 83880; 84484; 85025; 93005; 93017; 99285; A9502; G0378; J0280; J1650; J2785; J7030

== ENCOUNTER 2016-09-07 12:30 | Observation (INO) | payer MEDICARE ==
[~2016-09-07] VITALS: Ht 193 cm; Wt 126.5 kg
[~2016-09-07 12:30] MED LIST changes: +LISI-571 PO; +LORA-302 PO; +METO25TA6 PO; +TRAZ-115 PO
[2016-09-07 12:34] VITALS: BP 143/82; PULSE 76; RESP 15; O2SAT 97
--- NOTE | 2016-09-07 12:42 | ED.REPORT ---
HPI-Chest Pain 40 and Over Date of Service Sep 07, 2016 ED Provider: Gary Prakash MD The patient is a 66 year old male with history of non-insulin dependent diabetes mellitus, hypertension, hyperlipidemia, and anxiety, who presents to the emergency department complaining of chest pain that began earlier this morning while he was walking around. The pain did not radiate anywhere else. He was seen by his primary doctor this morning, given nitroglycerin, and sent to the emergency department. His pain is currently resolved. He is unsure if his symptoms are worse with exertion. He did not experience nausea, vomiting, shortness of breath. Last week he had an episode of chest pain, right arm tingling, and diaphoresis. He was seen here and admitted for 3 nights. He had a positive stress test during this hospitalization. He was discharged home on lisinopril, metoprolol, trazodone, and Ativan. 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 Nursing Notes Stated Complaint: CP RESOLVED Chief Complaint: Chest Pain Nursing Notes Reviewed: Yes Allergies: Coded Allergies: No Known Allergies (Verified Allergy, Unknown, 09/07/16) Scheduled Aspirin (Aspirin) 81 Mg Tablet 81 MG PO DAILY Atorvastatin (Lipitor) 10 Mg Tab 10 MG PO DAILY Metformin (Metformin) 500 Mg Tablet 500 MG PO DAILY Sertraline HCl (Zoloft) 100 Mg Tablet 200 MG PO DAILY Scheduled PRN Lorazepam (Ativan) 0.5 Mg Tablet 0.5 MG PO BID PRN PRN For Insomnia General Time Seen by MD: 12:41 Chief Complaint Chest pain Hx Obtained From: Patient, Spouse Arrived By: Walk-in Sudden in Onset?: Yes Onset Occurred: 5 - 8 hours ago Symptom Duration: 5 - 8 hours Quality: Painful Radiation: : Does not radiate Migration/Movement: Reports: None Severity: Current: No pain currently Severity: Maximum: Moderate Recent Healthcare: Recent doctor visit, Recent hospitalization Similar Sx Previous: Yes Past Medical History Past Medical History Notes: PCP: Dr. Bon[facility] Past Medical History NIDDM Hypertension Hyperlipidemia Anxiety PTSD Benign colonic polyps Recent positive stress test Past Surgical History Endoscopy Family History Unknown, never knew his parents Smoking History Never Smoker Social History Alcohol Use: 1-3 per day Other Social History: Good social support, , Local resident Ambulatory Status Independent Review of Systems Review of Systems Note: -jaw pain Respiratory: Denies: Shortness of breath Cardiovascular: Reports: Chest pain GI: Denies: Nausea, Vomiting Musculoskeletal: Denies: Back pain, Extremity pain, Neck pain Complete sys rev & neg: except as marked. Physical Exam Initial Vital Signs Vital Signs (First) Date Time Temp Pulse Resp B/P Pulse Ox O2 Delivery O2 Flow Rate FiO2 09/07/16 12:34 36.8 76 15 143/82 97 Room Air Initial VS: Reviewed Head / Eyes: Atraumatic, Normocephalic, PERRL ENT: Mucous membranes moist, Conjunctiva normal, No scleral icterus Neck: Supple, Non-tender, Full range of motion Back: No CVA tenderness Lymphatic: No lymphadenopathy Extremities: Vascular intact, Neuro intact, No swelling, No tenderness Skin: Warm, Dry, No cyanosis Neurologic: Alert, Oriented, Nonfocal Psychiatric: Mood/affect normal, Behavior normal, Normal thought content General/Constitutional: Awake, Alert, No acute distress, Well appearing, Cooperative Respiratory / Chest: Atraumatic, Breath sounds NL, Breath sounds = bilat, No respiratory distress, No rales, No rhonchi, No wheezing, No stridor, No chest tenderness Cardiovascular: Heart rate NL, Regular rhythm, Heart sounds NL, No gallop, No murmurs, No rubs, Peripheral circulation NL, Pulses = bilaterally, No gross BP differential Abdomen: Atraumatic, Soft, Non-tender, McBurney's non-tender, No guarding, No rebound, BS normoactive, No distention, No hernia, No palpable mass Interpretation & Diagnostics Lab Results Interpretation Result Diagram: 09/07/16 1330 09/07/16 1330 Test 09/07/16 13:30 09/07/16 14:42 White Blood Count 7.7th/mm3 (3.8-10.1) Red Blood Count 4.99mil/mm3 (4.40-5.80) Hemoglobin 14.7g/dL (13.8-17.2) Hematocrit 44.4% (41.0-50.0) Mean Corpuscular Volume 89.0fL (81-100) Mean Corpuscular Hemoglobin 29.5pg (27.0-35.0) Mean Corpuscular Hemoglobin Concent 33.1% (32.0-37.0) Red Cell Distribution Width 13.6% (12.3-15.4) Platelet Count 210bil/L (150-400) Neutrophils (%) (Auto) 75.3% (40-74) Lymphocytes (%) (Auto) 15.6% (14-46) Monocytes (%) (Auto) 8.0% (4-12) Eosinophils (%) (Auto) 0.4% (0-5) Basophils (%) (Auto) 0.3% (0-3) Sodium Level 139mEq/L (134-144) Potassium Level 4.1mEq/L (3.5-5.2) Chloride Level 103mEq/L (97-108) Carbon Dioxide Level 20mmol/L (18-29) Blood Urea Nitrogen 20mg/dL (8-27) Creatinine 1.11mg/dL (0.76-1.27) Estimat Glomerular Filtration Rate 70mL/min (>59) Glucose Level 135mg/dL (60-99) Calcium Level 9.2mg/dL (8.5-10.1) Magnesium Level 2.0mg/dL (1.6-2.6) Total Bilirubin 0.4mg/dL (0.0-1.2) Aspartate Amino Transf (AST/SGOT) 17U/L (0-50) Alanine Aminotransferase (ALT/SGPT) 16U/L (0-44) Alkaline Phosphatase 61U/L (25-160) Pro-B-Type Natriuretic Peptide 69.43pg/mL (0-376) Total Protein 6.7g/dL (6.4-8.4) Albumin 3.9g/dL (3.4-5.0) Hold Delvalle Top Tube Received (Received) Troponin T < 0.010ug/L (0.0-0.011) ECG Interpretation ECG Interpretation: Sinus rhythm with a rate of 63 LBBB Unchanged from prior Time: 13:15 Interpreted by: ED physician X-Ray Chest Interpretation Chest Xray Interpretation: IMPRESSION: 1. No acute cardiopulmonary disease. Dictated by: Partha Pittman M.D. on 09/07/2016 at 13:19 Interpretation / Wet Read by: Interpret - Radiologist Re-Eval/Medical Decision Med Decision/Clinical Course 66-year-old male history of hypertension, diabetes, hyperlipidemia presenting with chest pain this morning. Patient was admitted for chest pain last week and had stress test which showed reversible defect, small. Patient reports chest pain this morning and he went to his primary doctor and was relieved with nitroglycerin. His first set of troponins are negative here. He has left bundle branch block which is old on EKG. He had no chest pain while he was here. Discussed with cardiology who recommends admission with aspirin Plavix no heparin drip at this time. We will trend troponins and EKG cardiology to see. Source of Hx: Old records, Family, Private physician Summary of Info: PROCEDURE: 1 DAY PHARMACOLOGICAL STRESS TEST IMPRESSION: 1. Probably abnormal myocardial perfusion images with a small, mild, reversible perfusion defect suggesting myocardial ischemia. There is a component of attenuation artifact in anterior wall. 2. Normal left ventricular volume and systolic function. 3. Mild chest pressure. LBBB. No-diagnostic EKG for ischemia. Dictated by: Antonio Guerrero M.D. on 09/04/2016 at 13:43 Time of Eval: 14:15 Re-Evaluation/Progress Note: Rechecked the patient. Discussed plan for admission. All questions were addressed. Consultation #1: Referral / Consult Name: Ronaldo Ragsdale MD Consulted With: Cardiology Call Returned at: 14:10 Note: He agrees with plan for admission. He recommends trending, no Heparin. Consultation #2: Referral / Consult Name: Franky Cardona MD Consulted With: Hospitalist Requested Call at: 14:10 Call Returned at: 14:17 Awning Craftsman: Will see patient, Agrees with eval, Agrees with plan, Accepts admit Counseled Regarding: Diagnosis, Lab results, Need for admission Discharge & Departure Primary Impression: Chest pain Chest pain type: unspecified Qualified Code: R07.9 - Chest pain, unspecified Disposition: ADMITTED TO HOSPITAL Discharge Condition All VS Reviewed: Yes Condition: Stable Referrals: Felipe Bonilla MD (PCP) Julio Cibfadumo Attestation Portions of this note were transcribed by Zoe Cox. I, Dr. Prakash personally performed the history, physical exam and medical decision-making; I reviewed and confirmed the accuracy of the information in the transcribed note. Signed by: Radha Mark, 09/07/2016 at 1430. copies to: Felipe Bonilla MD, Ben M MD Sep 07, 2016 12:42 Zoe Cox Sep 07, 2016 12:48
--- NOTE | 2016-09-07 13:20 | DRSVH ---
PROCEDURE: X-RAY CHEST ONE VIEW, PORTABLE ([id number]) INDICATIONS: chest pain TECHNIQUE: One view of the chest was acquired. COMPARISON: [facility], CR, XR CHEST 1VW (PORTABLE), 09/03/2016, 9:16. FINDINGS: Surgical changes and devices: None. Lungs and pleura: No pleural effusions or pneumothorax. Lungs are clear. Mediastinum: Mediastinal contours appear normal. Heart size is normal. Bones and chest wall: No suspicious bony lesions. Overlying soft tissues appear unremarkable. IMPRESSION: 1. No acute cardiopulmonary disease. Dictated by: Partha Pittman M.D. on 09/07/2016 at 13:19 Approved by: Partha Pittman M.D. on 09/07/2016 at 13:19
[2016-09-07 13:37] LABS: BASOPHILS % (AUTO) 0.3 % (0-3); EOSINOPHILS % (AUTO) 0.4 % (0-5); Mean Corpuscular Hemoglobin 29.5 pg (27.0-35.0); NEUTROPHILS % (AUTO) 75.3 % (40-74); Platelet Count 210 bil/L (150-400)
[2016-09-07 14:04] LABS: TROPONIN T < 0.010 ug/L (0.0-0.011)
[2016-09-07] MEDS ORDERED: Ondansetron 2 mg/mL 2 mL Inj IVPUSH PRN ×2 (14:20)
[2016-09-07] MEDS ORDERED: Alum-Mag Hydrox-Simeth 30 mL Suspension PO PRN ×2 (14:20)
[2016-09-07] MEDS ORDERED: Polyethylene Glycol (PEG) 17 Gm Powder PO PRN (14:20)
[2016-09-07 15:21] VITALS: BP 146/70; PULSE 61; RESP 17; O2SAT 97
[2016-09-07 15:36] VITALS: BP 161/83; PULSE 65; RESP 15; O2SAT 96
[2016-09-07 15:42] LABS: APPEARANCE,URINE HAZY (CLEAR,HAZY); COLOR,URINE YELLOW (YELLOW); OCCULT BLOOD,URINE SMALL (NEGATIVE); PH,URINE 6.5 (5.0-8.0); UROBILINOGEN,URINE NORMAL (NORMAL)
[2016-09-07 18:49] VITALS: PULSE 76
[2016-09-07] MEDS ORDERED: LORazepam 0.5 mg Tablet PO PRN (19:40)
--- NOTE | 2016-09-07 20:55 | PCM.HPMED ---
Subjective Date of Service Sep 07, 2016 Primary Provider: Admitting Physician: Franky Cardona MD Primary Care Physician: Felipe Bonilla MD Attending Physician: Franky Cardona MD Admit Status: From the Emergency Department, Admit to [facility], Remote Telemetry Chief Complaint: Chest pain History of Present Illness: The patient is a 66-year-old white male with history of [id number]-[id number] diabetes mellitus, hypertension, hyperlipidemia, and anxiety, who presented to [facility] emergency department complaining of chest pain that began earlier this morning while he was walking around. Pain did not radiate anywhere else. He was seen by his primary doctor Dr. Bonilla this morning in the office. He was given nitroglycerin, and sent to the emergency department. His pain resolved on arrival to the emergency department. He is concerned however because he was admitted on September 02 through September 05 with chest pain, right arm tingling, right foot tingling, and diaphoresis. Patient underwent a stress test which was positive for reversible defect. This defect was apparently very small. Patient was discharged home on lisinopril metoprolol, trazodone, and Ativan in addition to aspirin. He was recommended to follow-up with his regular doctor and be referred to a [facility]. He saw his regular doctor, Dr. Bonilla today, who sent him back to the emergency room. Therefore , Dr. Marcos Mathews contacted Dr. Ragsdale, the [facility] front office manager, who recommended that the patient be brought in under observation to the hospitalist service for further evaluation and treatment. Dr. Ragsdale told Dr. Almonte that he would come and consult on the patient. Review of Systems: General: The patient is in no distress lying supine in bed with his head elevated approximately 30-45. HEENT: Patient has no headache, patient has no diplopia, patient has no changes in vision. He recently found out that he has 15% development of cataracts in both eyes. Patient has no problems with his ears, nose or throat. Patient has no known current dental problems. He has some bridging of his teeth. Patient has no pharyngitis or history of thrush. Neck: Patient has no stiffness in the neck. Patient has no lymphadenopathy. Patient has no other problems with their neck. Pulmonary: Patient has no shortness of breath, no cough, no expectoration of sputum. Patient has no pleurisy. Patient has no chest pain at current time. Chest pain that he did have was described as a "cramping" in nature which was substernal. The pain was not described as radiating. He had no associated diaphoresis, chills, or tremor this admission. Patient did have "shaking in his right hand and right foot that lasted approximately 1 hour along with diaphoresis the last admission just a few days ago. Patient has no history of asthma or COPD. Cardiovascular: Patient has no chest pain at current time. Patient has no history of heart murmur. Patient has no palpitations. Patient has no history of myocardial infarction. Patient has no history of coronary artery disease. Patient does have a history of hyperlipidemia. He denies ever having hypertension. Gastrointestinal: Patient has no history of hepatitis A, B or C. Patient has no history of peptic ulcer disease. Patient has no history of gastroesophageal reflux disease. Patient has no history of nausea, vomiting, or diarrhea. Patient has no history of hematemesis, hematochezia, or melena. Patient has no history of colitis. He does have a history of polyps which were removed proximal ureter go. He is scheduled for another colonoscopy in 4 years. Renal: Patient has no history of kidney disease. No history of kidney stones. Genitourinary: Patient has no history of dysuria, frequency, or incontinence. Patient has no previous history of genitourinary problems. Musculoskeletal: Patient has no history of muscular skeletal problems. Neurologic: Patient has no history of stroke, no history of seizure, no history of TIA. Patient has no history of tremor or shaking this admission. Psychiatric: Patient has a history of depression, PTSD and anxiety. The remainder of the entire review of systems was reviewed with patient and is as mentioned above otherwise negative. Allergies Coded Allergies: No Known Allergies (Verified Allergy, Unknown, 09/07/16) Home Medications Scheduled Aspirin (Aspirin) 81 Mg Tablet 81 MG PO DAILY Atorvastatin (Lipitor) 10 Mg Tab 10 MG PO DAILY Metformin (Metformin) 500 Mg Tablet 500 MG PO DAILY Sertraline HCl (Zoloft) 100 Mg Tablet 200 MG PO DAILY Scheduled PRN Lorazepam (Ativan) 0.5 Mg Tablet 0.5 MG PO BID PRN PRN For Insomnia The patient was first prescribed metoprolol tartrate 25 mg tablet one half tablet by mouth twice a day and he never filled this prescription. The patient was also prescribed lisinopril 5 mg by mouth daily and he never filled this prescription. The patient was also prescribed trazodone 50 mg by mouth daily at bedtime and he never filled this prescription. [facility] NIDDM-- the patient states that this is "borderline". 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 Patient has a follow-up appointment in 4 years Recent positive stress test Surgical History Patient had all of his wisdom teeth removed while he was in the [employer]. Patient had a colonoscopy 08-13 with removal of two polyps. Family History The patient was adopted and does not know the medical history of his biological parents or his biological siblings. He is in the process of trying to contact his to full biological siblings. Social History Occupation: patient is retired Hx Alcohol Use: Yes Hx Substance Use: No Hx Tobacco Use: No (patient is retired) Smoking Status: Never Smoker Living Arrangement: with Family Additional Information Patient was born in [facility] in [place]. His father was in the so they moved frequently. The patient went to grade school and the [place] [employer]. Patient ended up going to [employer] and graduated. 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 Patient was in the [employer] for 4 years. Then he attended [employer] for 2 years and got a degree in accounting. He then went got a bachelor's degree at [employer] in business. 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 Patient was for 43 times. His first for 3-1/2 years. He was to his second for 17 years. He has been to his third Sheryl for 17 years. In Sheryl is at his bedside. Patient never smoked and he quit drinking during his second marriage however he started drinking again due to stress and occasionally have 1 or 2 beers at night or an occasional drink but no more than 2 and he drinks approximate 4-5 nights per week. He is wondering if the alcohol has been interfering with his Zoloft concentrations which may be increasing his anxiety. Patient denies any illegal substance abuse or drug use. Exam Vital Signs Vital Sign - Last Date Time Temp Pulse Resp B/P Pulse Ox O2 Delivery O2 Flow Rate FiO2 09/07/16 18:49 76 09/07/16 15:36 37.5 15 161/83 96 Room Air Exam General: Patient is in no apparent distress laying supine in bed with head elevated at 30-45. HEENT: Head is atraumatic and normocephalic. Eyes: Pupils are equally round and reactive to light and accommodation. Extraocular muscles are intact. Sclera are white, anicteric. Subconjunctival mucosa is pink. Ears and nose are unremarkable. Oropharynx: There is no mucosal lesions, there is no thrush, there is no pharyngitis. Neck: Is obese, supple, there are no nodes, or masses or tenderness. Chest: Is clear to auscultation and percussion. There are no rales, rhonchi, wheezes or rubs. Heart: Rate, rhythm is regular. There is no murmur, rub or gallop. However, heart tones are distant. Abdomen: Good bowel sounds are present. Abdomen is obese, soft, nontender, no organomegaly or masses were appreciated. Extremities: Are symmetrical and well perfused. There is no edema, there is no cellulitis, no rash. Neurologic: There are no focal neurological deficits. Cranial nerves II through XII are intact. There are no sensory or motor deficits. Psychiatric: Patients mood is calm and shows no sign of agitation. Genital: Deferred Rectal: Deferred Lab and Diagnostics Result Diagram: 09/07/16 1330 09/07/16 1330 Assessment & Plan The patient is a 66-year-old white male with history of mno-txcnzzn-lnplmihee diabetes mellitus, hypertension, hyperlipidemia, and anxiety, who presented to [facility] emergency department complaining of chest pain that began earlier this morning while he was walking around. Pain did not radiate anywhere else. He was seen by his primary doctor Dr. Bonilla this morning in the office. He was given nitroglycerin, and sent to the emergency department. His pain resolved on arrival to the emergency department. He is concerned however because he was admitted on September 02 through September 05 with chest pain, right arm tingling, right foot tingling, and diaphoresis. Patient underwent a stress test which was positive for reversible defect. This defect was apparently very small. Patient was discharged home on lisinopril metoprolol, trazodone, and Ativan in addition to aspirin. He was recommended to follow-up with his regular doctor and be referred to a [facility]. He saw his regular doctor, Dr. Bonilla today, who sent him back to the emergency room. Therefore , Dr. Marcos Mathews contacted Dr. Ragsdale, the [facility] front office manager, who recommended that the patient be brought in under observation to the hospitalist service for further evaluation and treatment. Dr. Ragsdale told Dr. Almonte that he would come and consult on the patient. # Chest pain - The patient underwent a stress test 3 days ago on 09/04/2016. And the results are as follows: "Probably abnormal myocardial perfusion images with a small, mild, reversible perfusion defect suggesting myocardial ischemia. There is a component of attenuation artifact in anterior wall." - Motel Front Desk Attendant Dr. Ronaldo Ragsdale has been consulted by Dr. Marcos Almonte and will see the patient in consultation. We will await his recommendations. - Meanwhile will trend patient's troponins. - Telemetry monitoring - Patient did not fill his metoprolol prescription as he states that it caused his heart rate did dip into the 30s and alarmed the medical staff. - Patient did not fill his lisinopril prescription as he stated that he does not have hypertension. - The patient did not fill his trazodone prescription as he is trying to take less and less medications. # Diabetes mellitus. - Patient states that this is "borderline" - We will continue his home prescription of metformin. - We will monitor blood sugars before meals and at bedtime # PTSD and anxiety disorder - Lorazepam has been prescribed for the patient as needed. I warned him of the addictive nature of this drug. At this should not be continued for any length of time. - We will closely monitor. # History of depression - We will continue Zoloft and continued monitoring. - Patient denies any suicidal ideation. # History of hyperlipidemia - We will continue atorvastatin. Disposition: This will be determined by our oracle drm consultant and patient's hospital course. For now patient has been placed under observation. Pain Evaluation: Adequate Pain Control GI Prophylaxis: Not indicated VTE Prophylaxis: Sub-Q Enoxaparin VTE Mechanical Devices: Intermittant Pneumatic CD Resuscitation Status: CPR: Attempt Resuscitation Franky Cardona MD Sep 07, 2016 20:55
[2016-09-07 21:07] VITALS: BP 162/88; PULSE 55; RESP 16; O2SAT 96
[2016-09-08 00:23] VITALS: BP 144/78; PULSE 55; RESP 16; O2SAT 96
--- NOTE | 2016-09-08 04:47 | NUR ---
Activity, Chest pain: Pt was up and ambulating halls several times last evening. Denied chest pain/pressure with activity. Did report one incident of a "dull ache" at 2/10 at rest, which was brief and went away on own before any interventions required.
[2016-09-08 04:51] VITALS: BP 147/72; PULSE 54; RESP 18; O2SAT 97
[2016-09-08 04:56] VITALS: PULSE 57
[2016-09-08 06:23] LABS: BASOPHILS % (AUTO) 0.6 % (0-3); EOSINOPHILS % (AUTO) 1.2 % (0-5); Mean Corpuscular Hemoglobin 29.9 pg (27.0-35.0); Mean Corpuscular Volume 88.7 fL (81-100); NEUTROPHILS % (AUTO) 59.3 % (40-74); Platelet Count 207 bil/L (150-400)
[2016-09-08 06:56] LABS: TROPONIN T 0.01 ug/L (0.0-0.011)
[2016-09-08 07:11] LABS: Magnesium 2.2 mg/dL (1.6-2.6)
[2016-09-08 07:51] LABS: ERYTHROCYTE SEDIMENTATION RATE 2 mm/hr (0-30)
[2016-09-08 09:24] VITALS: BP 137/75; PULSE 63; RESP 21; O2SAT 96
--- NOTE | 2016-09-08 11:57 | NUR ---
Case Management: DYKES and Medicare Part D pamphlet delivered and explained to pt. along with spouse at bedside. Original placed in chart and copy left at bedside. Sharri Sutherland RN
--- NOTE | 2016-09-08 12:08 | DRSVH ---
PROCEDURE: X-RAY CHEST, TWO VIEWS ([id number]) INDICATIONS: Chest Pain TECHNIQUE: 2 views of the chest were acquired. COMPARISON: [facility], CR, XR CHEST 2V AP/PA AND LAT, 01/18/2016, 11:31 AM. [facility], CR, XR CHEST 1VW (PORTABLE), 09/07/2016, 12:58. FINDINGS: Surgical changes and devices: None. Lungs and pleura: No pleural effusions or pneumothorax. Lungs are clear. Elevation the right hemid iaphragm redemonstrated. Mediastinum: Mediastinal contours are normal. Heart size is normal. Bones and chest wall: No suspicious bony abnormalities. Soft tissues appear unremarkable. IMPRESSION: No acute cardiopulmonary disease. Dictated by: Louie LEE Interpreted: Nidia Leyva MD on 09/08/2016 at 12:07 Transcribed by: VIRGINIA on 09/08/2016 at 12:07 Approved by: Nidia Leyva M.D. on 09/08/2016 at 22:04
[2016-09-08 12:28] VITALS: PULSE 76
[2016-09-08 12:36] VITALS: BP 143/82; PULSE 56; RESP 18; O2SAT 97
--- NOTE | 2016-09-08 14:11 | PCM.DIMED ---
Discharge Instructions Date of Service Sep 08, 2016 Dates of Hospitalization Sep 07, 2016 at 15:11 Discharge Diagnosis Discharge Diagnosis Chest Pain Diet Heart Healthy Activity No restrictions (Patient may resume usual activities gradually as tolerated.) Call your provider Fever or Chills, Shortness of breath, Bleeding, Chest pain, Vomitting, Excessive diarrhea, Weakness (unilateral) Patient Instructions Follow-up Provider: Felipe Bonilla MD Follow-up with PCP in: 1 week Franky Cardona MD Sep 08, 2016 14:11
[2016-09-08] MEDS ORDERED: NITR0.4T SL (14:13)
[2016-09-08] MEDS ORDERED: LISI-571 PO (14:13)
--- NOTE | 2016-09-08 15:28 | NUR ---
discharge went over discharge instructions with patient and . Dr Cardona put in prescriptions for patient but said that patient did not need them as he already had them from recent visit. removed IV. no s/s of distress at time of dc
--- NOTE | 2016-09-08 17:27 | NUR ---
Social Work: Initial Assessment/Discharge Data: See initial assessment. Pt is 66 y/o male admitted 09/07/16 for chest pain. readmit risk score is 3-high. Pt is medically cleared for discharge today. Insurance is group health medicare and pcp is Felipe Bonilla MD. Pt states advance care directive/dpoa paperwork has been completed and SW requested a copy. Pt has no road test examiner care or VA benefits. Pt resides at home with in single level home and is independent with ADLs. Pt uses no DME and drives POV. No SNF/HH history. Pt to discharge home via with no needs. Assessment: Pt who is independent at baseline Plan: Pt to discharge home via POV, no needs. MANDA Tierney Addendum: 09/08/16 at 1731 by YOAN CHAPPELL SS Amended: Links added.
--- NOTE | 2016-09-08 18:36 | CONS ---
[address] [address] CONSULTATION REPORT PATIENT: ARASH RAMOS : 1950 MR#: [id number] ADMIT: 09/07/2016 JOB ID: [id number] DATE OF SERVICE: 09/08/2016 I have been asked by the hospitalist to see this patient who has a history of somewhat atypical chest discomfort and abnormal nuclear cardiac stress study for further cardiac evaluation. This gentleman has no past known cardiac history. He has been treated for non insulin-dependent diabetes by his primary care provider and has a long history of PTSD. On September 03, he presented to the emergency department for an episode of panic attack which was quite severe associated with dyspnea and diaphoresis and some atypical chest discomfort. He also complained of paresthesias involving his right leg and right arm tingling and because of that felt that he might be having a heart attack, mistaking symptoms of a stroke perhaps to those of a heart attack. He was admitted to the hospital and his cardiac evaluation was unremarkable. He had a pharmacologic stress study due to an underlying left bundle-branch block which demonstrated a small focal inferior perfusion abnormality which improved significantly with prone imaging and I think is most consistent with diaphragmatic attenuation. No significant regional perfusion abnormalities that would suggest ischemia on my review. He was discharged home from the hospital with "a bunch" of new prescriptions from a cardiac standpoint including a combination of metoprolol and lisinopril. When they got home and thought about the metoprolol, they decided not to take it because of his heart rate of 39 beats per minute occurring during the night after he had received a dose of metoprolol in the hospital and the labeling on both medications suggested that they were to treat hypertension and as far as the patient and family knew, he had never had hypertension before so he did not fill prescriptions for either lisinopril or metoprolol. He was told when he left the hospital that he needed to see a boatbuilder apprentice wood. They contacted their [employer] insurance plan who suggested that they needed to be referred by their primary care physician, so this patient presented to Dr. Bonilla's office to request a referral for cardiac evaluation and, on questioning, a physician actuarial assistant asked him if he had had any chest discomfort and he admitted to recurrent episodes of an atypical left lower parasternal chest discomfort and, for that reason, he was given an EKG which, of course, showed a left bundle-branch block and with concern regarding his abnormal nuclear study, he was again transferred directly to the emergency department, all of this, of course, aggravating his symptoms of anxiety. When I speak with the patient, it is clear that he is physically very active. 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 He does not have any history of any other cardiovascular issues or problems. This gentleman has been taking a baby aspirin daily and has also been on a statin drug but has not tolerated atorvastatin at all well. He is currently taking 10 mg every other day because of myalgias and muscle weakness associated with higher doses but, as far as I can tell, he has only been on perhaps one other statin drug previously. PAST MEDICAL HISTORY: Otherwise includes a history of PTSD and anxiety. He is concerned that he had a skin cancer removed and also had a precancerous polyp removed recently which has caused him some concern. He is adopted. He drinks one or two alcohol drinks daily. He is a nonsmoker. REVIEW OF SYSTEMS: Otherwise unremarkable. He has no history of true stroke or TIA-like symptoms. He has no history of claudication. No bleeding issues. PHYSICAL EXAMINATION: Shows a pleasant, mildly anxious, 66-year-old gentleman who is 6 feet 4 inches tall and weighs 278 pounds. Body mass index of 33.9. HEENT examination is unremarkable. He has hearing aids in place. Jugular venous pressure looks normal. His carotid upstroke is normal with no carotid bruits. Lung leonard are clear. Cardiac auscultation reveals a normal first and second heart sound with a second heart sound single, not split. I do not hear any pericardial friction rubs, no ventricular gallops or cardiac murmurs. Abdomen is unremarkable, nontender, no abdominal bruits or evidence of aortic enlargement. Distal extremities are warm and well perfused without edema. Distal pedal pulses are easily palpable. No obvious musculoskeletal or neurologic findings. LABORATORY DATA: Again shows a normal CBC. Chemistries are normal with a hemoglobin A1c of 6.3, serial troponins have all been normal. BNP is normal at 76 and lipid profile shows an LDL cholesterol of 95 with HDL cholesterol 49 on his current statin therapy. IMPRESSION: The patient has atypical chest discomfort likely related to anxiety and unrelated to and ischemic heart disease. I have personally reviewed his nuclear medicine scan and feel that the abnormality is quite consistent with diaphragmatic attenuation. There is no evidence that would suggest significant area of reversible perfusion abnormality or ischemia. I spoke at length with the patient about the fact that diabetes is essentially a coronary artery disease equivalent and that he needs to be treated aggressively. I have recommended that he fill his prescriptions for the lisinopril which is good for his borderline hypertension and for his kidneys in view of his diabetes. In addition, I have suggested that it is very important for him to be on moderate to high-dose statin therapy and that he needs to work with Dr. Bonilla to try other statin drugs at appropriate doses to find one that he tolerates and that is effective. If he cannot find a statin that he tolerates without significant muscular side effects, then he may be a candidate for application for PCSK9 protein inhibitor, and I would be more than happy to assist with that if needed. I have recommended that the patient remain active physically and follow up with Dr. Bonilla routinely. I do not believe that he needs any further cardiac evaluation, though I am certainly more than happy to assist with his care in the future on an as-needed basis.
--- NOTE | 2016-09-09 | PCM.DC.MED ---
Discharge Summary Date of Service Sep 08, 2016 Dates of Hospitalization Date of Hospital Admission Sep 07, 2016 at 15:11 Date of Discharge: Sep 08, 2016 Providers: Admitting Physician: Franky Cardona MD Primary Care Physician: Felipe Bonilla MD Attending Physician: Franky Cardona MD Diagnosis at Time of Discharge Diagnosis at Time of Discharge Chest Pain Consultations Dr. Ronaldo Ragsdale of cardiology Procedures XRay, CTs & MRIs PROCEDURE: X-RAY CHEST, TWO VIEWS ([id number]) INDICATIONS: Chest Pain TECHNIQUE: 2 views of the chest were acquired. COMPARISON: [facility], CR, XR CHEST 2V AP/PA AND LAT, 01/18/2016 , 11:31 AM. [facility], CR, XR CHEST 1VW (PORTABLE), 09/07/2016, 12: 58. FINDINGS: Surgical changes and devices: None. Lungs and pleura: No pleural effusions or pneumothorax. Lungs are clear. Elevation the right hemidiaphragm redemonstrated. Mediastinum: Mediastinal contours are normal. Heart size is normal. Bones and chest wall: No suspicious bony abnormalities. Soft tissues appear unremarkable. IMPRESSION: No acute cardiopulmonary disease. Dictated by: Louie Constantino Jacqueline Interpreted: Nidia Leyva MD on 09/08/2016 at 12: 07 Transcribed by: VRIGINIA on 09/08/2016 at 12:07 Approved by: Nidia Leyva M.D. on 09/08/2016 at 22:04 Brief History The patient is a 66-year-old white male with history of pic-ngbvlah-vjafshpyk diabetes mellitus, hypertension, hyperlipidemia, and anxiety, who presented to [facility] emergency department complaining of chest pain that began earlier this morning while he was walking around. Pain did not radiate anywhere else. He was seen by his primary doctor Dr. Bonilla this morning in the office. He was given nitroglycerin, and sent to the emergency department. His pain resolved on arrival to the emergency department. He is concerned however because he was admitted on September 02 through September 05 with chest pain, right arm tingling, right foot tingling, and diaphoresis. Patient underwent a stress test which was positive for reversible defect. This defect was apparently very small. Patient was discharged home on lisinopril metoprolol, trazodone, and Ativan in addition to aspirin. He was recommended to follow-up with his regular doctor and be referred to a teletype adjuster. He saw his regular doctor, Dr. Bonilla today, who sent him back to the emergency room. Therefore , Dr. Marcos Mathews contacted Dr. Ragsdale, the teletype adjuster bonding equipment operator, who recommended that the patient be brought in under observation to the hospitalist service for further evaluation and treatment. Dr. Ragsdale told Dr. Almonte that he would come and consult on the patient. Hospital Course The patient is a 66-year-old white male with history of lrn-owwczwk-symxtonyy diabetes mellitus, hypertension, hyperlipidemia, and anxiety, who presented to [facility] emergency department complaining of chest pain that began earlier this morning while he was walking around. Pain did not radiate anywhere else. He was seen by his primary doctor Dr. Bonilla this morning in the office. He was given nitroglycerin, and sent to the emergency department. His pain resolved on arrival to the emergency department. He is concerned however because he was admitted on September 02 through September 05 with chest pain, right arm tingling, right foot tingling, and diaphoresis. Patient underwent a stress test which was positive for reversible defect. This defect was apparently very small. Patient was discharged home on lisinopril metoprolol, trazodone, and Ativan in addition to aspirin. He was recommended to follow-up with his regular doctor and be referred to a teletype adjuster. He saw his regular doctor, Dr. Bonilla today, who sent him back to the emergency room. Therefore , Dr. Marcos Mathews contacted Dr. Ragsdale, the teletype adjuster bonding equipment operator, who recommended that the patient be brought in under observation to the hospitalist service for further evaluation and treatment. Dr. Ragsdale told Dr. Almonte that he would come and consult on the patient. # Chest pain - The patient underwent a stress test 3 days ago on 09/04/2016. And the results are as follows: "Probably abnormal myocardial perfusion images with a small, mild, reversible perfusion defect suggesting myocardial ischemia. There is a component of attenuation artifact in anterior wall." - Weather Reporter Dr. Ronaldo Ragsdale has been consulted by Dr. Marcos Almonte and did see the patient in consultation. We will follow his recommendations. His help is greatly appreciated. - Meanwhile will trend patient's troponins. - Telemetry monitoring - Patient did not fill his metoprolol prescription as he states that it caused his heart rate did dip into the 30s and alarmed the medical staff. - Patient did not fill his lisinopril prescription as he stated that he does not have hypertension. - The patient did not fill his trazodone prescription as he is trying to take less and less medications. - Dr. Ronaldo Ragsdale's recommendations are as follows: "The patient has atypical chest discomfort likely related to anxiety and unrelated to and ischemic heart disease. I have personally reviewed his nuclear medicine scan and feel that the abnormality is quite consistent with diaphragmatic attenuation. There is no evidence that would suggest significant area of reversible perfusion abnormality or ischemia. I spoke at length with the patient about the fact that diabetes is essentially a coronary artery disease equivalent and that he needs to be treated aggressively. I have recommended that he fill his prescriptions for the lisinopril which is good for his borderline hypertension and for his kidneys in view of his diabetes. In addition, I have suggested that it is very important for him to be on moderate to high-dose statin therapy and that he needs to work with Dr. Bonilla to try other statin drugs at appropriate doses to find one that he tolerates and that is effective. If he cannot find a statin that he tolerates without significant muscular side effects, then he may be a candidate for application for PCSK9 protein inhibitor, and I would be more than happy to assist with that if needed. I have recommended that the patient remain active physically and follow up with Dr. Bonilla routinely. I do not believe that he needs any further cardiac evaluation, though I am certainly more than happy to assist with his care in the future on an as-needed basis." # Diabetes mellitus. - Patient states that this is "borderline" - We will continue his home prescription of metformin. - We will monitor blood sugars before meals and at bedtime # PTSD and anxiety disorder - Lorazepam has been prescribed for the patient as needed. I warned him of the addictive nature of this drug. At this should not be continued for any length of time. - We will closely monitor. # History of depression - We will continue Zoloft and continued monitoring. - Patient denies any suicidal ideation. # History of hyperlipidemia - We will continue atorvastatin. Disposition: Patient has been cleared for discharge by cardiology. Patient will be discharged home with his today. Exam Vital Signs (Last) Date Time Temp Pulse Resp B/P Pulse Ox O2 Delivery O2 Flow Rate FiO2 09/08/16 12:36 36.5 56 18 143/82 97 Room Air Exam General: Patient is in no apparent distress laying supine in bed with head elevated at 30-45. HEENT: Head is atraumatic and normocephalic. Eyes: Pupils are equally round and reactive to light and accommodation. Extraocular muscles are intact. Sclera are white, anicteric. Subconjunctival mucosa is pink. Ears and nose are unremarkable. Oropharynx: There is no mucosal lesions, there is no thrush, there is no pharyngitis. Neck: Is obese, supple, there are no nodes, or masses or tenderness. Chest: Is clear to auscultation and percussion. There are no rales, rhonchi, wheezes or rubs. Heart: Rate, rhythm is regular. There is no murmur, rub or gallop. However, heart tones are distant. Abdomen: Good bowel sounds are present. Abdomen is obese, soft, nontender, no organomegaly or masses were appreciated. Extremities: Are symmetrical and well perfused. There is no edema, there is no cellulitis, no rash. Neurologic: There are no focal neurological deficits. Cranial nerves II through XII are intact. There are no sensory or motor deficits. Psychiatric: Patients mood is calm and shows no sign of agitation. Genital: Deferred Rectal: Deferred Test 09/07/16 13:30 09/07/16 15:24 09/08/16 06:12 Hold [place] Top Tube Received (Received) Urine Color Yellow (YELLOW) Urine Appearance Hazy (CLEAR,HAZY) Urine pH 6.5 (5.0-8.0) Urine Specific [place] 1.020 (1.003-1.035) Urine Protein Negativemg/dL (NEG,TRACE) Urine Glucose (UA) Negativemg/dL (NEGATIVE) Urine Ketones Tracemg/dL (NEGATIVE) Urine Occult Blood Small (NEGATIVE) Urine Nitrite Negative (NEGATIVE) Urine Bilirubin Negative (NEGATIVE) Urine Urobilinogen Normalmg/dL (NORMAL) Urine Leukocyte Esterase Negative (NEGATIVE) Urine RBC 0-2/hpf (0-2) Urine WBC 0-5/hpf (0-5) Urine Epithelial Cells Few/hpf (NONE-MOD) Urine Crystals None seen (NONE SEEN) Urine Bacteria Few/hpf (NONE-FEW) Urine Hyaline Casts None/lpf (NONE) Urine Granular Casts None seen (NONE SEEN) Urine Waxy Casts None seen (NONE SEEN) Urine Red Blood Cell Casts None seen (NONE SEEN) Urine White Blood Cell Casts None seen (NONE SEEN) Urine Mucus Present (None Seen) Urine Trichomonas None seen (NONE SEEN) Urine Yeast None (NONE SEEN) Urinalysis Comment None Urine Culture Reflexed Not indicated White Blood Count 6.9th/mm3 (3.8-10.1) Red Blood Count 5.21mil/mm3 (4.40-5.80) Hemoglobin 15.6g/dL (13.8-17.2) Hematocrit 46.2% (41.0-50.0) Mean Corpuscular Volume 88.7fL (81-100) Mean Corpuscular Hemoglobin 29.9pg (27.0-35.0) Mean Corpuscular Hemoglobin Concent 33.8% (32.0-37.0) Red Cell Distribution Width 13.5% (12.3-15.4) Platelet Count 207bil/L (150-400) Neutrophils (%) (Auto) 59.3% (40-74) Lymphocytes (%) (Auto) 28.6% (14-46) Monocytes (%) (Auto) 10.0% (4-12) Eosinophils (%) (Auto) 1.2% (0-5) Basophils (%) (Auto) 0.6% (0-3) Erythrocyte Sedimentation Rate 2mm/hr (0-30) Sodium Level 140mEq/L (134-144) Potassium Level 4.2mEq/L (3.5-5.2) Chloride Level 104mEq/L (97-108) Carbon Dioxide Level 21mmol/L (18-29) Blood Urea Nitrogen 18mg/dL (8-27) Creatinine 1.20mg/dL (0.76-1.27) Estimat Glomerular Filtration Rate 64mL/min (>59) Glucose Level 124mg/dL (60-99) Calcium Level 9.3mg/dL (8.5-10.1) Magnesium Level 2.2mg/dL (1.6-2.6) Total Bilirubin 0.6mg/dL (0.0-1.2) Aspartate Amino Transf (AST/SGOT) 21U/L (0-50) Alanine Aminotransferase (ALT/SGPT) 15U/L (0-44) Alkaline Phosphatase 64U/L (25-160) Troponin T 0.010ug/L (0.0-0.011) C-Reactive Protein 0.1mg/dL (0.0-0.5) Pro-B-Type Natriuretic Peptide 141.9pg/mL (0-376) Total Protein 6.8g/dL (6.4-8.4) Albumin 3.9g/dL (3.4-5.0) Discharge Medications Discharge Medications Aspirin (Aspirin) 81 Mg Tablet 81 MG PO DAILY (Reported) Atorvastatin (Lipitor) 10 Mg Tab 10 MG PO DAILY (Reported) Lisinopril (Lisinopril) 5 Mg Tablet 5 MG PO DAILY Prescribed by: GOKUL CARDONA MD Metformin (Metformin) 500 Mg Tablet 500 MG PO DAILY (Reported) Sertraline HCl (Zoloft) 100 Mg Tablet 200 MG PO DAILY (Reported) As needed Lorazepam (Ativan) 0.5 Mg Tablet 0.5 MG PO BID PRN PRN For Insomnia Prescribed by: CHADD ALLAN DO Nitroglycerin SL (Nitrostat) 0.4 Mg Tab.subl 0.4 MG SL Q5MIN PRN PRN For Chest Pain Prescribed by: GOKUL CARDONA MD Followup Plan Disposition: The patient is being discharged home today with his . Discharge Diet: Heart Healthy Discharge Activity: No restrictions (Patient may resume usual activities gradually as tolerated.) Follow-up Provider: Felipe Bonilla MD Follow-up with PCP in: 1 week Time spent Time spent on discharging this patient was greater than 35 minutes, over half of which was involved in counseling and coordination of care. Franky Cardona MD Sep 09, 2016 00:00
== END 2016-09-08 15:30 | disposition home or self-care (01) ==
LOC: SED 12:30 → MPC 15:11
PROVIDERS: ADMIT Internal Medicine Infectious Disease; ATTEND Internal Medicine Infectious Disease
DX: R07.89 Other chest pain (principal); F41.9 Anxiety disorder, unspecified; I10 Essential (primary) hypertension; E78.5 Hyperlipidemia, unspecified; E11.9 Type 2 diabetes mellitus without complications; F43.10 Post-traumatic stress disorder, unspecified; F32.9 Major depressive disorder, single episode, unspecified; Z79.82 Long term (current) use of aspirin; Z79.84 Long term (current) use of oral hypoglycemic drugs; Z86.010 Personal history of colon polyps; Z85.828 Personal history of other malignant neoplasm of skin